=== PATIENT | female | born 1995 | race Caucasian/White ===

== ENCOUNTER → 2018-01-27 | Outpatient (CLI) | payer OTHER ==
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
== END | disposition home or self-care (01) ==
LOC: RADXRMAIN 16:26
PROVIDERS: ATTEND Internal Medicine
DX: S16.1XXA Strain of muscle, fascia and tendon at neck level, initial encounter (principal); M54.6 Pain in thoracic spine; M54.5 Low back pain
CPT/HCPCS: 72050; 72070; 72100

== ENCOUNTER 2019-07-25 02:15 | Emergency (ER) | payer BC, OTHER ==
[2019-07-25 02:25] VITALS: TEMP 97.6
[2019-07-25] MEDS ORDERED: KETOROLAC 30 MG/ML 1 ML VIAL IVP STA (02:48)
[2019-07-25 02:57] LABS: Basophils # (A) 0.1 k/uL (0-0.2); Basophils % (A) 2 %; Eosinophils # (A) 0.1 k/uL (0-0.7); Eosinophils % (A) 3 %; HCT 44.8 % (34.0-46.0); Lymphocytes # (A) 1.5 k/uL (1.0-4.8); Lymphocytes % (A) 31 %; MCH 30.3 pg (25.0-35.0); MCHC 33.5 g/dL (31.0-37.0); MCV 90.5 fL (80.0-100.0); Mean Platelet Volume 8.1; Monocytes # (A) 0.4 k/uL (0-1.0); Monocytes % (A) 9 %; Neutrophils # (A) 2.5 k/uL (1.3-7.7); Neutrophils % (A) 52 %; Platelet Count 293 k/uL (150-450); RBC 4.95 m/uL (3.80-5.40); RDW 11.9 % (11.5-15.5); WBC 4.8 k/uL (3.8-10.6)
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
[2019-07-25 03:07] LABS: ALT 24 U/L (4-34); AST 30 U/L (14-36); African American GFR (CKD) >90 (>60 ml/min/1.73 sqM); Albumin 4.6 g/dL (3.5-5.0); Alkaline Phosphatase 37 U/L (38-126); Anion Gap 9 mmol/L; Blood Urea Nitrogen 11 mg/dL (7-17); Calcium 9.2 mg/dL (8.4-10.2); Carbon Dioxide 25 mmol/L (22-30); Chloride 105 mmol/L (98-107); Glucose 111 mg/dL (74-99); Magnesium 1.8 mg/dL (1.6-2.3); Non-African American GFR(CKD) >90 (>60 ml/min/1.73 sqM); Potassium 3.9 mmol/L (3.5-5.1); Sodium 139 mmol/L (137-145); Total Bilirubin 0.4 mg/dL (0.2-1.3); Total Protein 7.9 g/dL (6.3-8.2)
[2019-07-25 03:09] LABS: D-Dimer 0.29 mg/L FEU (<0.60); Partial Thromboplastin Time 23.7 sec (22.0-30.0); Prothrombin Time 10.5 sec (9.0-12.0)
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
[2019-07-25 04:32] LABS: T4, Free (Free Thyroxine) 1.43 ng/dL (0.78-2.19)
[2019-07-25 04:52] VITALS: BP 123/75; PULSE 88; RESP 18
== END 2019-07-25 04:52 | disposition home or self-care (01) ==
LOC: EC 02:15
DX: R07.9 Chest pain, unspecified (principal); R00.0 Tachycardia, unspecified; R79.89 Other specified abnormal findings of blood chemistry
CPT/HCPCS: 36415; 93005; 85379; 84439; 80053; 84443; 83735; 84484; 85025; 85610; 85730; 71046; 99285; 96374; J1885

== ENCOUNTER → 2019-08-28 | Outpatient (CLI) | payer BC | END | disposition home or self-care (01) | LOC: RADECHMAIN 12:00 | PROVIDERS: ATTEND Internal Medicine | DX: R00.2 Palpitations (principal) | CPT/HCPCS: 93225; 93226 ==

== ENCOUNTER → 2020-01-14 | Outpatient (CLI) | payer BC ==
[2020-01-14 17:00] LABS: T4, Free (Free Thyroxine) 1.3 ng/dL (0.80-1.80)
== END | disposition home or self-care (01) ==
LOC: LABWHC1 07:09
PROVIDERS: ATTEND Internal Medicine
DX: E03.9 Hypothyroidism, unspecified (principal)
CPT/HCPCS: 36415; 84439; 84443; 84481

== ENCOUNTER 2020-07-24 14:09 | Outpatient (CLI) | payer OTHER ==
[2020-07-24 15:28] VITALS: BP 125/79; PULSE 100; RESP 14; TEMP 97
--- NOTE | 2020-08-03 08:03 | P.MSEPDOC ---
Presenting Problems - Arrival Data Date of Arrival on Unit: 07/24/20 Time of Arrival on Unit: 14:08 Mode of Transport: Ambulatory - Complaint OB-Reason for Admission/Chief Complaint: Other Comment: contractions after having intercourse Medical History - Information : 1 Para: 0 Term: 0 : 0 Abortions: Spontaneous or Elective: 0 Number of Living Children: 0 - Gestational Age Gestational Age by NADINE (wks/days): 34 Weeks and 4 Days Review of Systems - Review of Systems Constitutional: No problems Breast: No problems ENT: No problems Cardiovascular: No problems Respiratory: No problems Gastrointestinal: No problems Genitourinary: No problems Musculoskeletal: No problems Neurological: No problems Skin: No problems Vital Signs - Temperature Temperature: 97 F Temperature Source: Tympanic - Pulse Right Brachial Pulse Rate: 100 Pulse Assessment Method: Automatic Cuff - Respirations Respiratory Rate: 14 Oxygen Delivery Method: Room Air - Blood Pressure Right Arm Blood Pressure: 125/79 Blood Pressure Mean: 94 Blood Pressure Source: Automatic Cuff Medical Screen Scoring (Pre) - Cervical Exam Dilation: 0 cm = 0 Membranes: Intact - Uterine Contractions Frequency: N/A Duration: N/A Intensity: N/A - Maternal Vital Signs Maternal Temperature: N/A Maternal Blood Pressure: N/A Signs of Preeclampsia: N/A Maternal Respirations: N/A - Maternal Trauma Maternal Trauma: N/A - Assessment - Baby A Baseline FHR: 135 Heart Rate - NICHD Category: Category I (Normal) = 0 NST: Reactive Position: N/A Station: N/A - Total Score - Baby A Total Score - Baby A: 0 - Total Score - Baby B Total Score - Baby B: 0 - Total Score - Baby C Total Score - Baby C: 0 - Level of Risk - Baby A Level of Risk - Baby A: Low (0-5) - Level of Risk - Baby B Level of Risk - Baby B: Low (0-5) - Level of Risk - Baby C Level of Risk - Baby C: Low (0-5) Physician Notification (Pre) - Physician Notified Physician Notified Date: 07/24/20 Physician Notified Time: 14:47 New Order Received: Yes - Notification Comment Comment: dr acevedo discharges pt home. reactive nst, cervix closed. follow up saturday at scheduled appointment Disposition - Disposition OB Disposition: Physician follow up in office, Discharge to home Discharge Date: 07/24/20 Discharge Time: 15:01 I agree with the RN Medical Screening Exam: Yes Case reviewed; plan agreed upon as documented in EMR&OBIX.: Yes Comments: Patient was neither seen nor examined by me Diagnosis: FALSE LABOR BEFORE 37 COMPLETED WEEKS OF GEST, THIRD TRI
== END 2020-07-24 15:01 | disposition home or self-care (01) ==
LOC: FBPOP 14:09
PROVIDERS: ATTEND Obstetrics & Gynecology
DX: O47.03 False labor before 37 completed weeks of gestation, third trimester (principal); Z3A.34 34 weeks gestation of pregnancy
CPT/HCPCS: 59025; 99213

== ENCOUNTER 2020-08-25 21:40 | Outpatient (CLI) | payer OTHER ==
[2020-08-25 22:37] VITALS: RESP 20; TEMP 98.1
[2020-08-25 23:38] VITALS: BP 128/78; PULSE 105
--- NOTE | 2020-10-06 17:26 | P.MSEPDOC ---
Presenting Problems - Arrival Data Date of Arrival on Unit: 08/25/20 Time of Arrival on Unit: 21:45 Mode of Transport: Ambulatory - Complaint OB-Reason for Admission/Chief Complaint: Possible Onset of Labor, Rule Out SROM Medical History - Information : 1 Para: 0 - Gestational Age Gestational Age by NADINE (wks/days): 39 Weeks and 1 Days Review of Systems - Review of Systems Constitutional: No problems Breast: No problems ENT: No problems Cardiovascular: No problems Respiratory: No problems Gastrointestinal: No problems Genitourinary: No problems Musculoskeletal: No problems Neurological: No problems Skin: No problems Vital Signs - Temperature Temperature: 98.1 F Temperature Source: Oral - Pulse Brachial Pulse Rate: 105 Pulse Assessment Method: Automatic Cuff - Respirations Respiratory Rate: 20 Oxygen Delivery Method: Room Air O2 Sat by Pulse Oximetry: 97 - Blood Pressure Right Arm Blood Pressure: 128/78 Blood Pressure Mean: 94 Blood Pressure Source: Automatic Cuff Medical Screen Scoring (Pre) - Cervical Exam Dilation: 1-3 cm = 1 Effacement: Exam Deferred Membranes: Intact - Uterine Contractions Frequency: > 5 minutes apart = 1 Duration: > 40 seconds = 2 Intensity: N/A - Maternal Vital Signs Maternal Temperature: N/A Maternal Blood Pressure: N/A Signs of Preeclampsia: N/A Maternal Respirations: N/A - Maternal Trauma Maternal Trauma: N/A - Assessment - Baby A Baseline FHR: 135 Heart Rate - NICHD Category: Category I (Normal) = 0 NST: Reactive Position: N/A Station: N/A - Total Score - Baby A Total Score - Baby A: 4 - Total Score - Baby B Total Score - Baby B: 4 - Total Score - Baby C Total Score - Baby C: 4 - Level of Risk - Baby A Level of Risk - Baby A: Low (0-5) - Level of Risk - Baby B Level of Risk - Baby B: Low (0-5) - Level of Risk - Baby C Level of Risk - Baby C: Low (0-5) Physician Notification (Pre) - Physician Notified Physician Notified Date: 08/25/20 Physician Notified Time: 22:15 New Order Received: Yes - Notification Comment Comment: MONITOR FOR ONE HOUR Medical Screen Scoring (Post) - Cervical Exam Dilation: 1-3 cm = 1 Effacement: Exam Deferred Membranes: Intact - Uterine Contractions Frequency: N/A Duration: N/A Intensity: N/A - Maternal Vital Signs Maternal Temperature: N/A Maternal Blood Pressure: N/A Signs of Preeclampsia: N/A Maternal Respirations: N/A - Pain Assessment Pain Location and Character: Lower, Abdomen Pain Scale Used: Numeric (1 - 10) Pain Intensity: 3 Pain Management Goal: 0 Pain Description: Cramping Pain Frequency: Intermittent Pain Duration: 10 Pain Duration Units: Minutes Pain Behavior: None Exhibited Pain Aggravating Factors: Activity, ADL's Pharmacological Interventions: PRN Medication - Maternal Trauma Maternal Trauma: N/A - Assessment - Baby A Heart Rate: 135 Heart Rate - NICHD Category: Category I (Normal) = 0 NST: Reactive Position: N/A Station: N/A - Total Score Total Score - Baby A: 1 Total Score - Baby B: 1 Total Score - Baby C: 1 - Post Treatment Level of Risk Post Treatment Level of Risk - Baby A: Low (0-5) Post Treatment Level of Risk - Baby B: Low (0-5) Post Treatment Level of Risk - Baby C: Low (0-5) Disposition - Disposition OB Disposition: Discharge to home Discharge Date: 08/25/20 Discharge Time: 23:09 I agree with the RN Medical Screening Exam: Yes Physician's MSE Comment: Patient was not seen were examined by myself Case reviewed; plan agreed upon as documented in EMR&OBIX.: Yes Diagnosis: FALSE LABOR AT OR AFTER 37 COMPLETED WEEKS OF GESTATION
== END 2020-08-25 23:09 | disposition home or self-care (01) ==
LOC: FBPOP 21:40
PROVIDERS: ATTEND Obstetrics & Gynecology Obstetrics
DX: O47.1 False labor at or after 37 completed weeks of gestation (principal); Z3A.39 39 weeks gestation of pregnancy
CPT/HCPCS: 84112; 99213

== ENCOUNTER 2020-08-31 08:28 | Inpatient (IN) | payer OTHER ==
[2020-09-07] MEDS ORDERED: TERBUTALINE 1 MG/ML VIAL SQ PRN (06:16)
[2020-09-07] MEDS ORDERED: CARBOPROST TROMETHAMINE 250 MCG/ML 1 ML AMP IM PRN (06:16)
[2020-09-07] MEDS ORDERED: OXYTOCIN 10 UNIT/ML 1 ML VIAL IM PRN (06:16)
[2020-09-07] MEDS ORDERED: LIDOCAINE 0.5% (PF) 5 MG/ML (50 ML SDV) SQ PRN (06:16)
[2020-09-07] MEDS ORDERED: METHYLERGONOVINE 0.2 MG/ML 1 ML AMP IM PRN (06:16)
[2020-09-07] MEDS ORDERED: PENICILLIN G POTASSIUM 5,000,000 UNIT in DEXTROSE 5% IN WATER 100 ML IVPB ONE ×2 (06:30)
[2020-09-07] MEDS: LACTATED RINGERS 1,000 ML IV SCH ×3 (06:40→19:54)
[2020-09-07 06:42] LABS: Basophils % (A) 0 %; Eosinophils # (A) 0.2 k/uL (0-0.7); Eosinophils % (A) 2 %; Lymphocytes # (A) 1.6 k/uL (1.0-4.8); Lymphocytes % (A) 22 %; MCH 31.6 pg (25.0-35.0); MCHC 34.2 g/dL (31.0-37.0); MCV 92.3 fL (80.0-100.0); Mean Platelet Volume 8.6; Monocytes # (A) 0.4 k/uL (0-1.0); Monocytes % (A) 6 %; Neutrophils % (A) 69 %; Platelet Count 200 k/uL (150-450); RBC 3.79 m/uL (3.80-5.40); RDW 13.1 % (11.5-15.5); WBC 7.2 k/uL (3.8-10.6)
[2020-09-07] MEDS: OXYTOCIN 30 UNITS/500 ML NS 30 UNIT in SALINE 1 500ML.BAG IV SCH ×2 (06:45→22:00)
--- NOTE | 2020-09-07 08:37 | P.HPOB ---
History of Present Illness H&P Date: 09/07/20 Chief Complaint: Here for induction of labor at 41 weeks gestation This is a 24-year-old white female 1 para 0 EDC 08/31/2020 at 41 weeks gestation. Patient presents today for induction of labor. She is having rare mild uterine contractions. Fetus is been active throughout the . She denies vaginal bleeding or fluid leakage. Past medical history is significant for hypothyroidism. Past surgical history ear surgery 1994, wisdom teeth extracted 2015. Current medications levothyroxine 50 MCG's daily, vitamin daily. ALLERGIES none known. Family history significant for diabetes. Social history patient has never been a smoker, she denies alcohol or drug use. She is and employed. history is significant for blood type A+, rubella status immune. VDRL testing, urine culture, hepatitis B surface antigen, HIV testing, gonorrhea and chlamydia cultures all negative. One-hour Glucola 139. Group B strep cultures positive. On exam patient is 5 foot 2 inches, 153 pounds, blood pressure on admission 136/86, vital signs are stable and she is afebrile. General physical exam is within normal limits. Cervix is 1 m dilated, 75% effaced, -2 station, vertex presentation, anterior, soft. Artificial amniorrhexis reveals clear fluid. heart tones are consistent with reactive NST. Impression: 41 week intrauterine , here for induction of labor, all signs reassuring. Plan: Oxytocin per hospital protocol. Close maternal and surveillance. Analgesic options reviewed with the patient. Anticipate normal spontaneous vaginal delivery. Past Medical History Past Medical History: No Reported History History of Any Multi-Drug Resistant Organisms: None Reported Past Surgical History: Ear Surgery Smoking Status: Never smoker Medications and Allergies Home Medications Medication Instructions Recorded Confirmed Type Aspirin [Adult Low Dose Aspirin EC] 1 tab PO DAILY 07/24/20 09/07/20 History Levothyroxine Sodium [Synthroid] 25 mcg PO DAILY 07/24/20 09/07/20 History Pnv,Calcium 72/Iron/Folic Acid 1 tab PO DAILY 07/24/20 09/07/20 History [ Plus Tablet] Allergies Allergy/AdvReac Type Severity Reaction Status Date / Time gluten Allergy Nausea & Verified 09/07/20 06:16 Vomiting peanut Allergy Nausea & Verified 09/07/20 06:16 Vomiting Exam Intake and Output 09/06/20 09/07/20 09/07/20 22:59 06:59 14:59 Other: Weight 69.4 kg Results Result Diagrams: 09/07/20 06:30 Abnormal Lab Results - Last 24 Hours (Table) 09/07/20 Range/Units 06:30 RBC 3.79 L (3.80-5.40) m/uL
[2020-09-07] MEDS: PENICILLIN G POTASSIUM 2,500,000 UNIT in DEXTROSE 5% IN WATER 100 ML IVPB SCH ×6 (10:56→19:55)
[2020-09-07] MEDS ORDERED: ROPIVACAINE 100 MG, fentaNYL (PF) 200 MCG in SODIUM CHLORIDE 0.9% 76 ML EPIDURAL ONE (16:42)
[2020-09-07] MEDS ORDERED: CITRIC ACID-SODIUM CITRATE 15 ML CUP PO ONE (20:06)
[2020-09-07] MEDS ORDERED: METOCLOPRAMIDE 5 MG/ML 2 ML VIAL IVP PRN (21:36)
[2020-09-07] MEDS ORDERED: diphenhydrAMINE 25 MG CAP PO PRN (21:36)
[2020-09-07] MEDS ORDERED: ONDANSETRON 4 MG/2 ML VIAL IVP PRN (21:36)
[2020-09-07] MEDS ORDERED: diphenhydrAMINE 50 MG CAP PO PRN (21:36)
[2020-09-07] MEDS ORDERED: ZOLPIDEM 5 MG TAB PO PRN (21:36)
[2020-09-07] MEDS ORDERED: NALOXONE 0.4 MG/ML 1 ML VIAL IV PRN (21:36)
[2020-09-07] MEDS ORDERED: diphenhydrAMINE 50 MG/ML 1 ML VIAL IVP PRN ×2 (21:36)
--- NOTE | 2020-09-07 21:36 | P.OP ---
Date of Procedure: 09/07/20 Preoperative Diagnosis: 41 weeks gestation, arrest of dilatation and descent Postoperative Diagnosis: Occiput posterior, liveborn male infant. Procedure(s) Performed: Primary low transverse section Anesthesia: epidural Surgeon: Abby Dozier Regulatory Affairs Internship #1: Harrison Patrick Estimated Blood Loss (ml): 700 IV fluids (ml): 700 Urine output (ml): 1,400 Pathology: none sent Condition: stable Disposition: PACU Indications for Procedure: Arrest of dilation at 3-4 cm, -2 station. Description of Procedure: Patient is brought back to the operating suite where the epidural previously placed was topped off. She's placed in the dorsal supine position with left lateral uterine displacement. Vaginal prep was performed. Abdomen is prepped and draped in usual sterile fashion. Schneider catheter placed to direct drainage. The appropriate timeout is performed to assure proper patient and procedural identification. The analgesia is checked and noted to be adequate. A low transverse skin incision is made in this is carried down through the subcutaneous tissue to the fascia. Fascia is isolated, scored, extended bilaterally with curved Casas scissors. Peritoneum is next identified and incised, there is no bowel or bladder involvement. Bladder blade is placed over the dome of the bladder. At all times the bladder is Well from the operative field to avoid bladder and or ureteral injury. A low transverse uterine incision is made in this is carried down through the myometrium. It is extended with blunt dissection. 's head is delivered in the occiput posterior position. The oropharynx, nasopharynx, and external nares are bulb suctioned on the abdominal wall. Patient is officially delivered of a liveborn male at 2055 hours. Umbilical cord is doubly clamped and ligated, he is handed to waiting nurses for evaluation where scores of 10 and 10 at one and 5 minutes respectively are given. The placentas delivered manually, it is inspected and noted to be intact with trivascular cord at 2055 hours. At this time the uterus is externalized and massaged. It is swept clean with a sterile sponge to avoid any retained products of conception. Uterus is closed in a two-step fashion, first layer running locking with 0 Vicryl. Second layer imbricated with 0 Vicryl. Bilateral tubes and ovaries are inspected and noted to be normal. No uterine defects or fibroids are appreciated. The abdomen is suctioned with suction on guard posterior to the uterus. Uterus is then gently placed back into the abdominal cavity and bilateral gutters are inspected and cleaned. The peritoneum is allowed to close by secondary intention. The fascia is closed in a running stitch of 0 Vicryl with over ligation in the midline. Subcutaneous tissue is irrigated, clean and dry. It is reapproximated with 2-0 Vicryl in a running stitch. 4-0 undyed Monocryl is used for final skin closure in a subcuticular manner. Steri-Strips and Mastisol applied to the wound. Uterus is massaged. All sponge needle and enhancement counts are correct. Schneider is draining clear urine, 1400 mL's. Patient is requesting circumcision for her son.
[2020-09-08] MEDS: KETOROLAC 15 MG/ML 1 ML VIAL IVP SCH ×4 (02:54→20:09)
[2020-09-08] MEDS: PENICILLIN G POTASSIUM 2,500,000 UNIT in DEXTROSE 5% IN WATER 100 ML IVPB SCH ×4 (03:16→04:13)
[2020-09-08] MEDS: IBUPROFEN 600 MG TAB PO SCH ×3 (04:07→17:05)
[2020-09-08] MEDS: LACTATED RINGERS 1,000 ML IV SCH ×5 (04:21→15:34)
--- NOTE | 2020-09-08 08:29 | P.PN ---
Subjective Progress Note Date: 09/08/20 Principal diagnosis: Postoperative day #1 Slept well, positive flatus, no complaints. Objective - Vital Signs Vital signs: Vital Signs Temp 97.7 F 09/08/20 03:10 Pulse 76 09/08/20 03:10 Resp 16 09/08/20 03:10 BP 112/74 09/08/20 03:10 Pulse Ox 99 09/07/20 23:31 Intake & Output 09/07/20 09/08/20 09/08/20 18:59 06:59 18:59 Intake Total 15.25 Output Total 2200 Balance -2184.75 Weight 69.4 kg Intake: Intake, IV Titration 15.25 Amount Oxytocin 30 Units/500 ml 15.25 Ns 30 unit In Saline 1 500ml.bag @ Per Protocol IV .Q0M [facility] Rx#:[id number] Output: Urine 1500 Uretheral (Schneider) 300 Estimated Blood Loss 700 Other: Voiding Method Indwelling Catheter # Voids 1 # Bowel Movements 0 - Constitutional General appearance: Present: average body habitus, cooperative - EENT Eyes: Present: PERRLA - Neck Thyroid: bilateral: normal size - Respiratory Respiratory: bilateral: CTA - Cardiovascular Rhythm: regular - Gastrointestinal General gastrointestinal: Present: normal bowel sounds - Genitourinary Genitourinary Comment(s): Incision clean and dry, intact, Steri-Strips applied. Fundus firm, midline, symmetric, 18 week size. - Integumentary Integumentary: Present: normal - Neurologic Neurologic: Present: CNII-XII intact - Musculoskeletal Musculoskeletal: Present: gait normal, strength equal bilaterally - Psychiatric Psychiatric: Present: A&O x's 3, appropriate affect, intact judgment & insight - Labs CBC & Chem 7: 09/07/20 06:30 Assessment and Plan Assessment: Doing well day #1 Plan: Continue postoperative care. Advanced diet and activity. Circumcision has been performed, anticipate discharge home tomorrow. Time with Patient: Less than 30
--- NOTE | 2020-09-08 08:40 | P.PN ---
Progress Note - Text Progress Note Date: 09/08/20 Anesthesia Postop day 1 Subjective: Status Post section with Duramorph. Patient seen and examined. Doing well without complaint. VAS 2 out of 10. No nausea or vomiting. Mild pruritus tolerable.. . Gross lower extremity strength intact. Positive ambulation. Without apparent anesthetic complications. Objective: Vital signs reviewed Heart: Regular Rate Lungs: Good chest excursion Abdomen: Appears nondistended Assessment: Status post with Duramorph postop day 1 Plan: Continue current care with your medical management.
[2020-09-08 08:53] LABS: Basophils % (A) 0 %; Eosinophils # (A) 0.1 k/uL (0-0.7); Eosinophils % (A) 1 %; HGB 10.1 gm/dL (11.4-16.0); Lymphocytes # (A) 0.8 k/uL (1.0-4.8); Lymphocytes % (A) 7 %; MCH 31.5 pg (25.0-35.0); MCHC 33.6 g/dL (31.0-37.0); MCV 93.7 fL (80.0-100.0); Mean Platelet Volume 8.6; Monocytes # (A) 0.5 k/uL (0-1.0); Monocytes % (A) 5 %; Neutrophils # (A) 9.4 k/uL (1.3-7.7); Neutrophils % (A) 87 %; Platelet Count 169 k/uL (150-450); RDW 13.1 % (11.5-15.5); WBC 10.9 k/uL (3.8-10.6)
[2020-09-08] MEDS: SENNOSIDES-DOCUSATE SODIUM 1 EACH TAB PO SCH ×2 (09:49→20:08)
[2020-09-08] MEDS: ACETAMINOPHEN TAB 500 MG TAB PO PRN (17:48)
[2020-09-09] MEDS: ACETAMINOPHEN TAB 500 MG TAB PO PRN ×2 (00:27→08:11)
[2020-09-09] MEDS: IBUPROFEN 600 MG TAB PO SCH ×2 (01:38→04:35)
[2020-09-09] MEDS: KETOROLAC 15 MG/ML 1 ML VIAL IVP SCH (01:38)
--- NOTE | 2020-09-09 07:54 | P.DS ---
Providers Date of admission: 09/07/20 06:02 Expected date of discharge: 09/09/20 Attending physician: Abby Dozier Primary care physician: Stated None Hospital Course: This is a 24-year-old white female 1 para 0 EDC 08/31/2020 at 41 weeks gestation who presented for induction for postdates . Blood type is A+, rubella status immune. unremarkable. Please see dictated H&P for details. Patient had arrest of dilation in the second stage of labor and went on to deliver via primary low transverse section. She gave to a liveborn male infant with scores of 10 and 10 at one and 5 minutes re spectively. Infant was occiput posterior. He weighed 8 lbs. 10 oz. 3910 g. Surgery was unremarkable, estimated blood loss 700 mL's. Please see dictated operative note for details. This morning the patient is doing well. She is voiding, ambulating, passing flatus without difficulty. Vital signs are stable and she is afebrile. Fundus is firm and in the midline, symmetric and 18 week size. Incision is clean and dry, intact, Steri-Strips applied. infant is doing well, circumcision has been performed. I have given the patient a prescription for a double electric breast pump per her request. She is judged to be in very good condition for discharge home. She will call with any fevers shakes or chills, foul smelling or copious lochia, with the passage of large blood clots, with any pain not alleviated by Advil Motrin or Aleve, or indeed with any concerns. We have briefly discussed contraceptive options and we will discuss this further in the office. No heavy lifting. No intercourse, tampons or douching. infant will follow-up with hand tennis ball coverer as per recommendations. Assessment: Doing well second day Patient Condition at Discharge: Good Plan - Discharge Summary Discharge Rx Participant: No New Discharge Prescriptions: No Action Levothyroxine Sodium [Synthroid] 25 mcg PO DAILY Aspirin [Adult Low Dose Aspirin EC] 1 tab PO DAILY Pnv,Calcium 72/Iron/Folic Acid [ Plus Tablet] 1 tab PO DAILY Discharge Medication List Aspirin [Adult Low Dose Aspirin EC] 1 tab PO DAILY 07/24/20 [History] Levothyroxine Sodium [Synthroid] 25 mcg PO DAILY 07/24/20 [History] Pnv,Calcium 72/Iron/Folic Acid [ Plus Tablet] 1 tab PO DAILY 07/24/20 [History] Follow up Appointment(s)/Referral(s): Abby Dozier MD [STAFF PHYSICIAN] - 2 Weeks Discharge Disposition: HOME SELF-CARE
[2020-09-09] MEDS: SENNOSIDES-DOCUSATE SODIUM 1 EACH TAB PO SCH (08:11)
[2020-09-09 10:56] VITALS: BP 113/71; PULSE 80; RESP 18; TEMP 97.6
== END 2020-09-09 09:45 | disposition home or self-care (01) | DRG 788 ==
LOC: 4FBP 09-07 06:02
PROVIDERS: ADMIT Obstetrics & Gynecology; ATTEND Obstetrics & Gynecology
PROC: 10907ZC Drainage of Amniotic Fluid, Therapeutic from Products of Conception, Via Natural or Artificial Opening (ICD-10-PCS; 2020-09-07)
PROC: 00HU33Z Insertion of Infusion Device into Spinal Canal, Percutaneous Approach (ICD-10-PCS; 2020-09-07)
PROC: 3E033VJ Introduction of Other Hormone into Peripheral Vein, Percutaneous Approach (ICD-10-PCS; 2020-09-07)
PROC: 3E0R3BZ Introduction of Anesthetic Agent into Spinal Canal, Percutaneous Approach (ICD-10-PCS; 2020-09-07)
PROC: 10D00Z1 Extraction of Products of Conception, Low, Open Approach (ICD-10-PCS; principal; 2020-09-07 06:15)
DX: O48.0 Post-term pregnancy (principal); E03.9 Hypothyroidism, unspecified; O62.0 Primary inadequate contractions; O99.284 Endocrine, nutritional and metabolic diseases complicating childbirth; O99.73 Diseases of the skin and subcutaneous tissue complicating the puerperium; L29.9 Pruritus, unspecified; Z3A.41 41 weeks gestation of pregnancy; Z37.0 Single live birth; Z83.3 Family history of diabetes mellitus; Z79.890 Hormone replacement therapy; Z79.82 Long term (current) use of aspirin; Z79.899 Other long term (current) drug therapy; Z91.010 Allergy to peanuts; Z91.018 Allergy to other foods
CPT/HCPCS: 85025; 86850; 86900; 86901

== ENCOUNTER 2020-09-03 15:09 | Outpatient (CLI) | payer OTHER ==
[2020-09-03 17:02] VITALS: BP 124/86; PULSE 93; RESP 14; TEMP 97.7
== END 2020-09-03 16:40 | disposition home or self-care (01) ==
LOC: FBPOP 15:09
PROVIDERS: ATTEND Obstetrics & Gynecology
DX: O62.9 Abnormality of forces of labor, unspecified (principal); Z3A.40 40 weeks gestation of pregnancy
CPT/HCPCS: 59025; 99213

== ENCOUNTER 2022-07-17 10:58 | Inpatient (IN) | payer OTHER ==
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
[2022-07-19] MEDS ORDERED: LIDOCAINE 0.5% (PF) 5 MG/ML (50 ML SDV) SQ PRN (16:30)
[2022-07-19] MEDS ORDERED: TERBUTALINE 1 MG/ML VIAL SQ PRN (16:30)
[2022-07-19] MEDS ORDERED: OXYTOCIN 30 UNITS/500 ML NS 30 UNIT in SALINE 1 500ML.BAG IV SCH (16:30)
[2022-07-19] MEDS: LACTATED RINGERS 1,000 ML IV SCH (16:56)
[2022-07-19 17:30] LABS: Basophils % (A) 0 %; Eosinophils % (A) 1 %; HCT 34.8 % (34.0-46.0); Lymphocytes # (A) 0.7 k/uL (1.0-4.8); Lymphocytes % (A) 13 %; MCH 30.9 pg (25.0-35.0); MCHC 34.5 g/dL (31.0-37.0); MCV 89.7 fL (80.0-100.0); Mean Platelet Volume 9.3; Monocytes # (A) 0.3 k/uL (0-1.0); Monocytes % (A) 6 %; Neutrophils # (A) 4.4 k/uL (1.3-7.7); Neutrophils % (A) 79 %; Platelet Count 152 k/uL (150-450); RBC 3.88 m/uL (3.80-5.40); RDW 13.4 % (11.5-15.5); WBC 5.6 k/uL (3.8-10.6)
[2022-07-20] MEDS: BUTORPHANOL 1 MG/ML 1 ML VIAL IV PRN ×2 (01:47→03:56)
[2022-07-20] MEDS: LACTATED RINGERS 1,000 ML IV SCH ×2 (03:57→07:59)
[2022-07-20] MEDS ORDERED: PENICILLIN G POTASSIUM 5,000,000 UNIT in DEXTROSE 5% IN WATER 100 ML IVPB STA ×2 (06:03)
[2022-07-20] MEDS ORDERED: ROPIVACAINE 5 MG/ML 20 ML AMPULE ONE (06:34)
[2022-07-20] MEDS ORDERED: SODIUM CHLORIDE 0.9% 100 ML BAG ONE (06:34)
[2022-07-20] MEDS ORDERED: fentaNYL (PF) 50 MCG/ML 5 ML AMP ONE (06:34)
[2022-07-20] MEDS: PENICILLIN G POTASSIUM 2,500,000 UNIT in DEXTROSE 5% IN WATER 100 ML IVPB SCH ×4 (10:03→14:21)
[2022-07-20] MEDS ORDERED: METHYLERGONOVINE 0.2 MG/ML 1 ML AMP IM ONE (11:51)
[2022-07-20] MEDS ORDERED: HYDROCORTISONE 2.5% RECTAL CREAM 30 GM TUBE RECTAL PRN (12:03)
[2022-07-20] MEDS ORDERED: diphenhydrAMINE 50 MG CAP PO PRN (12:03)
[2022-07-20] MEDS ORDERED: SIMETHICONE 80 MG CHEWABLE PO PRN (12:03)
[2022-07-20] MEDS ORDERED: diphenhydrAMINE ELIXIR 25 MG/10 ML CUP PO PRN (12:03)
[2022-07-20] MEDS ORDERED: diphenhydrAMINE 25 MG CAP PO PRN (12:03)
[2022-07-20] MEDS ORDERED: ZOLPIDEM 5 MG TAB PO PRN (12:03)
[2022-07-20] MEDS ORDERED: BENZOCAINE/MENTHOL SPRAY 1 GM/SPRAY AEROSOL TOPICAL PRN (12:03)
[2022-07-20] MEDS ORDERED: LANOLIN CREAM 5 GM TUBE TOPICAL PRN (12:03)
[2022-07-20] MEDS ORDERED: diphenhydrAMINE 50 MG/ML 1 ML VIAL IVP PRN ×2 (12:03)
--- NOTE | 2022-07-20 12:03 | P.PROBDLV ---
Vaginal Delivery Note - . Vaginal Delivery Note: This is a 26-year-old female 3 para 1011 EDC 07/17/2022 at 40-3/7 weeks gestation. Patient presented with unfavorable cervix last night and received the [employer] cervical balloon. This morning artificial amniorrhexis revealed clear fluid. Oxytocin was started and titrated. Epidural was placed per her request. She progressed well through the first stage of labor and became completely dilated and pushing at 1125 hours. Perineal body was prepped and draped in usual sterile fashion. With excellent maternal expulsive efforts the head delivered at 1143 hours and restituted accordingly. Was no nuchal cord noted. The right or anterior shoulder was delivered easily from underneath the pubic symphysis at which time the oropharynx, nasopharynx, and external nares were all bulb suction. Patient was officially delivered of a liveborn female at 1143 hours. Umbilical cord was doubly clamped and ligated, she was handed to waiting nurses for evaluation where scores of 9 and 9 at one and 5 minutes respectively were given. Placenta delivered spontaneously, it was inspected and noted to be intact with trivascular cord at 1147 hours. Careful inspection then of the cervix, vagina, perineum, periurethral, and perirectal areas revealed a small first-degree midline laceration easily repaired with Rapide suture. Total estimated blood loss 250 mL's. Uterus is firm and in the midline, symmetric and small upon completion of delivery. weight 8 lbs. 3 oz. or 3715 g. Patient is group B strep positive and did receive 2 doses of penicillin G per protocol. She and her family are allowed to begin the bonding experience in the LDR.
[2022-07-20] MEDS: IBUPROFEN 600 MG TAB PO SCH ×2 (12:23→18:06)
[2022-07-20] MEDS: ACETAMINOPHEN TAB 325 MG TAB PO PRN ×2 (15:13→21:17)
[2022-07-20] MEDS: SENNOSIDES-DOCUSATE SODIUM 1 EACH TAB PO SCH (21:18)
[2022-07-21] MEDS: IBUPROFEN 600 MG TAB PO SCH ×2 (02:41→09:14)
[2022-07-21 09:13] VITALS: RESP 16
[2022-07-21] MEDS: SENNOSIDES-DOCUSATE SODIUM 1 EACH TAB PO SCH (09:13)
--- NOTE | 2022-07-21 11:18 | P.DS ---
Providers Date of admission: 07/19/22 15:48 Expected date of discharge: 07/21/22 Attending physician: Abby Dozier Primary care physician: Stated None - Discharge Diagnosis(es) (1) Normal spontaneous vaginal delivery Current Visit: Yes Status: Acute (2) Vaginal after section Current Visit: Yes Status: Acute Hospital Course: the patient is a 26-year-old 2 para 1001 admitted at 40-2/7 weeks by good dating parameters. She is admitted with a history of a previous section and requesting vaginal trial of labor. Her was otherwise uncomplicated and group B strep status is positive. As her cervix was relatively unfavorable, a cooks cervical catheter was placed overnight and she had progressed significantly off of the morning after Pitocin augmentation was added to perform artificial rupture of membranes. antibiotic prophylaxis have been started for group B strep at the onset of labor. She made good progress throughout the day and had an upper catheter placed for analgesia which failed to give her significant relief. She also a progress to complete and then pushed to a normal spontaneous vaginal delivery of a viable 8 lbs. 4 oz. baby girl with Apgars of 9 at 1 minute and 9 at 5 minutes, successful vaginal after section. her course was unremarkable vital signs or any stable and her temperature was afebrile throughout. She was deemed stable for discharge on day #1 was discharged home to follow-up in the office in 6 weeks' time routinely. Discharge instructions included calling for any significantly increased bleeding or foul-smelling lochia, significantly increased fever or abdominal pain, perineal complaints, breast complaints, or anything also concerned her. She was additionally instructed to have nothing in the vagina for at least 6 weeks time to include intercourse. She understood her instructions and agrees to follow up as noted above. Discharge medications included continued vitamins as she has opted to breast-feed as well as [id number] analgesic pain medications. Maternal blood type is A+ and rubella status is immune. Procedures: #1. Cooks catheter cervical ripening #2. Antibody prophylaxis #3. Pitocin augmentation #4. Artificial rupture of membranes #5. Epidural analgesia #. Normal spontaneous vaginal delivery, successful #6. Repair of perineal laceration Patient Condition at Discharge: Stable Plan - Discharge Summary New Discharge Prescriptions: No Action Levothyroxine Sodium [Synthroid] 25 mcg PO DAILY Discharge Medication List Levothyroxine Sodium [Synthroid] 25 mcg PO DAILY 07/24/20 [History] Follow up Appointment(s)/Referral(s): Abby Dozier MD [STAFF PHYSICIAN] - 6 Weeks Discharge Disposition: HOME SELF-CARE
[2022-07-21 13:31] VITALS: BP 107/72; PULSE 88; TEMP 98
== END 2022-07-21 14:25 | disposition home or self-care (01) | DRG 807 ==
LOC: 4FBP 07-19 15:48
PROVIDERS: ADMIT Obstetrics & Gynecology; ATTEND Obstetrics & Gynecology
PROC: 3E033VJ Introduction of Other Hormone into Peripheral Vein, Percutaneous Approach (ICD-10-PCS; principal; 2022-07-19)
PROC: 0U7C7ZZ Dilation of Cervix, Via Natural or Artificial Opening (ICD-10-PCS; principal; 2022-07-19)
PROC: 0HQ9XZZ Repair Perineum Skin, External Approach (ICD-10-PCS; 2022-07-20)
PROC: 10E0XZZ Delivery of Products of Conception, External Approach (ICD-10-PCS; 2022-07-20)
PROC: 10907ZC Drainage of Amniotic Fluid, Therapeutic from Products of Conception, Via Natural or Artificial Opening (ICD-10-PCS; 2022-07-20)
DX: O34.211 Maternal care for low transverse scar from previous cesarean delivery (principal); O99.284 Endocrine, nutritional and metabolic diseases complicating childbirth; O70.0 First degree perineal laceration during delivery; E03.9 Hypothyroidism, unspecified; O99.824 Streptococcus B carrier state complicating childbirth; Z79.82 Long term (current) use of aspirin; Z79.890 Hormone replacement therapy; Z91.048 Other nonmedicinal substance allergy status; Z86.69 Personal history of other diseases of the nervous system and sense organs; Z3A.40 40 weeks gestation of pregnancy; Z37.0 Single live birth
CPT/HCPCS: 85025; 86850; 86900; 86901